=== PATIENT | male | born 1970 | race Caucasian/White ===

== ENCOUNTER → 2016-08-19 | Outpatient (CLI) | payer BC ==
[2016-08-19 17:29] LABS: HEMOGLOBIN A1C 9.35 % (4.2-6.0); MEAN BLOOD GLUCOSE (CALC) 225.355 mg/dL
[2016-08-19 17:37] LABS: CREATININE, URINE 116.5 MG/DL (15-500)
== END ==
LOC: MOB LAB 16:24
DX: E11.9 Type 2 diabetes mellitus without complications (principal)
CPT/HCPCS: 36415; 82043; 83036